=== PATIENT | female | born 1950 | race Caucasian/White ===

== ENCOUNTER 2017-05-28 12:06 | Day surgery (SDC) | payer MEDICARE, OTHER ==
[2017-05-28] MEDS ORDERED: LIDOCAINE 2% MDV (20MG/ML) 20ML VIAL IV ONE (12:07)
[2017-05-28] MEDS ORDERED: PROPOFOL 10 MG/ML VIAL IV ONE (12:07)
[2017-05-28] MEDS ORDERED: FENTANYL PF 100MCG/2ML VIAL IV ONE (12:07)
--- NOTE | 2017-06-01 07:30 | Operative Note ---
DATE OF SURGERY: 05/28/2017 SURGEON: Bia Brandt MD OPERATION: COLONOSCOPY. INDICATIONS: This is a 67-year-old female with history of colon polyps who presented for surveillance colonoscopy. POSTOPERATIVE DIAGNOSES: 1. Left-sided colonic diverticulosis. 2. Otherwise normal colon. ANESTHESIA: The procedure of colonoscopy and risks and alternatives of the procedure, including the risk of bleeding and perforation, among others, were explained to the patient who voiced understanding and agreed to have the procedure done. PROCEDURE: A digital rectal exam was performed and there are no palpable rectal masses. An Olympus PCF-180AL colonoscope was then inserted into the rectum under direct visualization. It was advanced to the cecum with moderate difficulty. The difficulty was due to redundancy of the sigmoid colon and fixation due to diverticular disease and poor flexibility of the colonoscope. The colonoscope was then changed before cecal intubation could be obtained. The colonic mucosa was carefully examined upon introduction of the colonoscope. There were scattered diverticula noted in the sigmoid and descending colon with suggestion of the sigmoid colon. The colonoscope was then withdrawn while carefully examining the colonic mucosal surfaces. No other lesions were noted. In the rectum, retroflexion was performed and grade 1 internal hemorrhoids were noted. The colonoscope was then withdrawn and the procedure was terminated. The patient tolerated the procedure well without any immediate complications. The patient remained with stable vital signs and was transferred to the recovery room. RECOMMENDATIONS: 1. The patient should be on a high-fiber diet. 2. The patient is to have a repeat colonoscopy for surveillance in 5 years. Thank you for allowing me to participate in the care of your patient. CC: DO RUTHY Houston
== END 2017-05-28 13:31 | disposition home or self-care (01) ==
LOC: HOP 12:06
PROVIDERS: ATTEND Internal Medicine Gastroenterology
DX: Z86.010 Personal history of colon polyps (principal); K57.30 Diverticulosis of large intestine without perforation or abscess without bleeding
CPT/HCPCS: 00812; G0121